=== PATIENT | female | born 1935 | race Caucasian/White ===

== ENCOUNTER 2017-05-15 11:31 | Emergency (ER) | payer OTHER ==
[~2017-05-15] VITALS: Ht 160 cm; Wt 70.4 kg
[~2017-05-15 11:31] MED LIST: AMBIEN10 MG PO; ASPIR 8181 M1 PO; ASPIRIN325 MG PO; Ambien PO; Aspirin E.C. PO; BENICAR HCT 201 EACH PO; Benicar HCT 20/12.5 PO; CIPRO500 MG PO; CRANBERRY 4001 EAC1 PO; DIGOXIN125 MCG PO; Flexeril PO; Lanoxin,Digitek PO; MECLIZINE HCL25 MG PO; Move Free Advanced T PO; NOLVADEX20 MG PO; OMEGA 3-6-91200 MG PO; PRESERVISION AREDS PO; Percocet 5/325,Endoc PO; Senokot S,Pericolace PO; VITAMIN B122500 MCG PO; VITAMIN C1000 MG PO; VITAMIN E400 UNIT PO; Vitamin D PO
[2017-05-15 17:08] VITALS: BP 117/65
== END 2017-05-15 17:09 | disposition home or self-care (01) ==
LOC: EME 11:31
DX: T84.84XA Pain due to internal orthopedic prosthetic devices, implants and grafts, initial encounter (principal); G89.18 Other acute postprocedural pain; Z96.641 Presence of right artificial hip joint; Z91.81 History of falling; I10 Essential (primary) hypertension; Z79.82 Long term (current) use of aspirin
CPT/HCPCS: 73501; 99281; 99284; G8978 GP CJ; G8979 GP CI; G8980 CJ; G8987 GO CJ; G8988 CI; G8989 CJ; J3010